=== PATIENT | male | born 1995 | race Two or more races ===

== ENCOUNTER 2019-01-14 18:29 | Emergency (ER) | payer BC ==
[~2019-01-14] VITALS: Ht 170.2 cm; Wt 81.6 kg
--- NOTE | 2019-01-14 18:40 | NUR ---
DR JARRELL AT THE BEDSIDE FOR MSE.
[2019-01-14 19:03] VITALS: BP 117/85
--- NOTE | 2019-01-14 19:03 | NUR ---
Patient discharged to home in stable conditon. Written and verbal after care instructions given. Patient verbalizes understanding of instructions.
== END 2019-01-14 19:04 | disposition home or self-care (01) ==
LOC: ER 18:31
DX: Z00.00 Encounter for general adult medical examination without abnormal findings (principal); F17.200 Nicotine dependence, unspecified, uncomplicated
CPT/HCPCS: 71045; A4663